=== PATIENT | female | born 1945 | race Hispanic/Latino ===

== ENCOUNTER 2022-08-04 17:46 | Emergency (ER) | payer OTHER ==
[2022-08-04] VITALS (9 sets, daily range): BP systolic 131–162; BP diastolic 76–87
[~2022-08-04] VITALS: Ht 160 cm; Wt 95.0 kg
[2022-08-04] MEDS ORDERED: KLOR-CON M1010 MEQ PO (18:20)
[2022-08-04] MEDS ORDERED: METFORMIN HCL1000 MG PO (18:21)
[2022-08-04] MEDS ORDERED: HYDROCHLOROTHIA50 MG PO (18:22)
[2022-08-04 19:51] LABS: BASO% 0.5 % (0-3); EOS% 0.6 % (0-8); HEMATOCRIT 44.3 % (37.0-47.0); HEMOGLOBIN 14.7 g/dl (12.0-16.0); IMMATURE GRANULOCYTES 0.3 % (0.0-5.0); LYMPH% 19.3 % (15-41); MEAN CORPUSCULAR HGB 29.5 pG CALC (26.0-32.0); MEAN CORPUSCULAR HGB CONC 33.2 g/dL CAL (32.0-36.0); MONO% 7.1 % (2-13); NEUT# 7.78 thou/uL (2.00-7.15); NEUT% 72.2 % (42-76); RED BLOOD COUNT 4.98 mill/uL (4.20-5.60); RED CELL DISTRI WIDTH 12.8 % (11.5-15.5)
[2022-08-04 19:58] LABS: ALBUMIN 3.8 g/dL (3.2-5.0); ALKALINE PHOSPHATASE 95 u/l (38-126); AMYLASE 91 u/l (30-110); ANION GAP 17 (6-22 (CALC)); BILIRUBIN, TOTAL 0.4 mg/dL (0.02-1.3); BUN 15 mg/dL (8-23); BUN/CREATININE RATIO 22 (12-20 (CALC)); CARBON DIOXIDE 25 mmol/l (22-30); CHLORIDE 85 mmol/l (95-108); CREATININE 0.7 mg/dL (0.5-1.0); GFR FOR AFR.AMER. > 60 ML/MIN (>=60 (CALC)); GFR OTHER RACES > 60 ML/MIN (>=60 (CALC)); LIPASE 271 u/l (23-300); POTASSIUM 3.4 mmol/l (3.5-5.1); SGOT/AST 39 u/l (9-36); SODIUM 123 mmol/l (137-146); TOTAL PROTEIN 6.8 g/dL (6.3-8.2)
[2022-08-04 20:30] LABS: URINE BILIRUBIN - DIPSTICK NEGATIVE (NEGATIVE); URINE BLOOD DIPSTICK NEGATIVE (NEGATIVE); URINE COLOR YELLOW; URINE GLUCOSE - DIPSTICK NEGATIVE (NEGATIVE); URINE KETONE TRACE mg/dL (NEGATIVE); URINE LEUK ESTERASE TRACE (NEGATIVE); URINE PROTEIN - DIPSTICK NEGATIVE (NEG-TRACE); URINE SPECIFIC GRAVITY 1.025; URINE UROBILINOGEN - DIPSTICK 0.2 E.U./dL (0.2)
[2022-08-04 20:32] LABS: URINE NITRITE - DIPSTICK NEGATIVE (Negative)
[2022-08-04] MEDS ORDERED: MIRALAX17 GM PO (20:40)
== END 2022-08-04 21:40 | disposition home or self-care (01) ==
LOC: ED 17:46
PROVIDERS: Emergency Medicine
DX: K59.00 Constipation, unspecified (principal); E87.1 Hypo-osmolality and hyponatremia; I10 Essential (primary) hypertension; E11.9 Type 2 diabetes mellitus without complications; Z79.84 Long term (current) use of oral hypoglycemic drugs